=== PATIENT | female | born 1985 | race Caucasian/White ===

== ENCOUNTER 2021-06-14 00:13 | Emergency (ER) | payer OTHER ==
[2021-06-14 00:39] VITALS: TEMP 98.3; BMI 36.3
[2021-06-14] MEDS ORDERED: ENALAPRIL MALEATE 10 MG TABLET PO SCH (02:30)
[2021-06-14 06:55] VITALS: BP 151/98; PULSE 82
[2021-06-14] MEDS ORDERED: ENALAPRIL MALEATE 5 MG TABLET ONE (06:56)
== END 2021-06-14 09:01 | disposition home or self-care (01) ==
LOC: JER 00:13
DX: I10 Essential (primary) hypertension (principal); F19.10 Other psychoactive substance abuse, uncomplicated
CPT/HCPCS: 93005; 93010; 99283-25